=== PATIENT | female | born 1955 | race Caucasian/White ===

== ENCOUNTER → 2017-11-12 | Outpatient (CLI) | payer BC | LOC: COL.RAD 13:20 | DX: R31.9 Hematuria, unspecified (principal); N27.1 Small kidney, bilateral ==

== ENCOUNTER → 2018-02-13 | Outpatient (CLI) | payer BC | LOC: MC.RAD 13:30 | DX: Z12.31 Encounter for screening mammogram for malignant neoplasm of breast (principal) ==